=== PATIENT | male | born 1960 | race Two or more races ===

== ENCOUNTER 2023-04-29 12:00 | Emergency (ER) | payer MEDICAID ==
[~2023-04-29] VITALS: Ht 180.3 cm; Wt 98.9 kg
[2023-04-29 13:33] LABS: Basophils # (auto) 0.2 10 ^3/uL (0-0.2); Hemoglobin 12.2 g/dL (13.5-17.5); Lymphocytes % (auto) 30.4 % (10.0-50.0); Mean Corpuscular Hgb Conc. 32.4 g/dL (32.0-36.0); Monocytes # (auto) 0.8 10 ^3/uL (0-1.3); Monocytes % (auto) 9.2 % (0.0-12.0); Nucleated Red Blood Cells % 0.1 %
[2023-04-29 13:34] LABS: Basophils % (auto) 2.7 % (0.0-2.0); Eosinophils # (auto) 0.4 10 ^3/uL (0-0.8); Eosinophils % (auto) 4.6 % (0.0-7.0); Hematocrit 37.5 % (41.0-53.0); Lymphocytes # (auto) 2.5 10 ^3/uL (0.4-5.4); Neutrophils # (auto) 4.4 10 ^3/uL (1.6-8.6); Neutrophils % (auto) 53.1 % (37.0-80.0); Red Blood Cells 5.07 10^6/uL (4.5-5.90); White Blood Cell 8.3 10^3/uL (4.4-10.8)
[2023-04-29 13:51] LABS: Alanine Aminotransferase 16 U/L (7-40); Albumin 4.7 g/dL (3.2-4.8); Alkaline Phosphatase 48 U/L (46-116); Anion Gap 9 (5-15); Aspartate Aminotransferase 21 U/L (13-40); BUN/Creatinine Ratio 9.8 (10.0-20.0); Bilirubin, Total 0.5 mg/dL (0.2-1.0); Blood Urea Nitrogen 13 mg/dL (9-23); Calcium 9.5 mg/dL (8.5-10.1); Carbon Dioxide 20 mmol/L (20-30); Chloride 109 mmol/L (98-107); Glucose 84 mg/dL (74-106); Potassium 4.6 mmol/L (3.5-5.1); Sodium 138 mmol/L (136-145); Total Protein 7.3 g/dL (5.7-8.2)
[2023-04-29] MEDS ORDERED: IOHEXOL 350 MG/ML 100ML IJ ONE (14:43)
[2023-04-29 16:35] VITALS: BP 127/85; PULSE 75; RESP 15; TEMP 97.4; O2SAT 93
== END 2023-04-29 17:22 | disposition home or self-care (01) ==
LOC: ER 12:00
DX: M79.604 Pain in right leg (principal); E78.5 Hyperlipidemia, unspecified; I10 Essential (primary) hypertension; Z90.49 Acquired absence of other specified parts of digestive tract; Z88.6 Allergy status to analgesic agent
CPT/HCPCS: 36415; 71275; 80053; 84484; 85025; 85379; 93971; 99285; Q9967